=== PATIENT | female | born 1985 | race Caucasian/White ===

== ENCOUNTER → 2020-10-08 | Day surgery (SDC) | payer OTHER ==
[~2020-10-08] MED LIST: IMITREX4 MG/0.51 PO; KEFLEX CAP 500500 MG PO; LANSOPRAZOLE15 MG PO; PYRIDIUM100 MG PO; ZOFRAN ODT 4 MG4 MG PO
== END | disposition home or self-care (01) ==
LOC: OR 07:00
DX: Z12.11 Encounter for screening for malignant neoplasm of colon (principal); Z80.0 Family history of malignant neoplasm of digestive organs; G43.909 Migraine, unspecified, not intractable, without status migrainosus; Z98.51 Tubal ligation status; E66.9 Obesity, unspecified; Z20.822 Contact with and (suspected) exposure to COVID-19; D12.8 Benign neoplasm of rectum; K64.0 First degree hemorrhoids
CPT/HCPCS: J2704; J7040

== ENCOUNTER → 2021-03-05 | Outpatient (CLI) | payer OTHER | LOC: KOH-I 03-03 14:00 | DX: R22.1 Localized swelling, mass and lump, neck (principal) | CPT/HCPCS: 76536 ==